=== PATIENT | female | born 1955 | race Hispanic/Latino ===

== ENCOUNTER 2017-09-11 12:18 | Emergency (ER) | payer MEDICARE ==
[2017-09-11] MEDS ORDERED: BOOSTRIX IM ONE (13:07)
[2017-09-11] MEDS ORDERED: NORCO 7.5/325 PO ONE (13:07)
--- NOTE | 2017-09-11 14:23 | Cat Scan Report ---
CT head without contrast: Headache. Axial images are obtained and compared to prior exam in 2012. There is an area of irregular decreased attenuation with encephalomalacia in the left temporal region extending toward ferrell radiata. No mass effect and no hemorrhage. This is unchanged from prior exam. There is a focal area of encephalomalacia in the periphery of the left frontal lobe not identified previously. The scan is otherwise generally unremarkable for stated age. Minimal focal mucoperiosteal thickening is identified in the posterior right sphenoid sinus. The visualized sinuses and bones are not otherwise remarkable. Impression: 1. 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 2. Left frontal encephalomalacia most likely representing a stroke since 2012. CT cervical spine without contrast: Facial pain. Transverse images were performed with coronal and sagittal 2-D reformatted images. Mild focal mucoperiosteal thickening is identified in the posterior right sphenoid sinus and a posterior ethmoid sinus. The remaining paranasal sinuses are clear. The bony structures appear generally unremarkable. There is no evidence of fracture. No swelling identified. Impression: Minimal sinus inflammatory changes of questionable age. No bone nor soft tissue abnormality identified.
[2017-09-11] MEDS ORDERED: MORPHINE ONE (14:55)
[2017-09-11] MEDS ORDERED: XYLOCAINE 1% 20 mL ONE (14:55)
[2017-09-11] MEDS ORDERED: MORPHINE IV ONE (15:03)
[2017-09-11] MEDS ORDERED: XYLOCAINE 1% 20 mL INFILTRATI ONE (15:04)
[2017-09-11] MEDS ORDERED: MORPHINE IM ONE ×2 (15:08→16:03)
[2017-09-11 15:51] VITALS: BP 146/75
--- NOTE | 2017-09-11 16:43 | Emergency Department Report ---
HPI - General Chief Complaint: Fall Time Seen by Provider: 09/11/17 12:42 - HPI HPI: The patient's is 62-year-old female presents for evaluation of trauma to the head. The patient reports headache and forehead pain since falling in her yard due to tripping over a tree stump. She has experienced constant pain since this incident occurred 1 hour prior to arrival. Her pain has been moderate in severity, throbbing in quality, exacerbated with movement of the head. The patient denies fever, syncope, neck pain, neck stiffness, chest pain, dyspnea, abdominal pain, back pain, vision or hearing changes, smell or taste changes, paresthesias, facial drooping, slurred speech, seizure-like activity, urine or bowel incontinence or retention, or other focal neurological deficit. ED Past Medical Hx - Past Medical History Previous Medical History?: Yes Hx Hypertension: Yes Hx CVA: Yes Hx Congestive Heart Failure: No Hx Diabetes: Yes (type II) Hx GERD: Yes Hx Asthma: Yes Hx COPD: Yes Additional medical history: Depression, Anxiety - Surgical History Hx Appendectomy: Yes Additional Surgical History: Hysterectomy, hernia removed, hemorroid removal, partial colectomy - Social History Smoking Status: Current Every Day Smoker Substance Use Type: None - Medications Home Medications: Home Medications Medication Instructions Recorded Confirmed Last Taken Type ALBUTEROL Inhaler [ProAir HFA 2 puff IH QID PRN #1 inhalation 10/06/14 09/11/17 12/16/14 Rx Inhaler] ALPRAZolam [Xanax TAB] 2 mg PO TID PRN 10/06/14 09/11/17 09/10/17 History Albuterol *Only Ed* [Proventil 2.5 mg IH Q4H PRN #30 nebu 10/06/14 09/11/1705/22 Rx 0.5% NEBS] Butalbital/Acetaminophen 1 each PO TID 10/06/14 09/11/17 12/16/14 History [Butalbital-Acetaminophn 50-325] Hydroxyzine HCl [hydrOXYzine] 50 mg PO BID 10/06/14 09/11/17 09/10/17 History Ipratropium/Albuterol Sulfate 4 gm INHALATION PRN PRN 10/06/14 09/11/17 History [Combivent Respimat] Methocarbamol 500 mg PO QDAY 10/06/14 09/11/17 12/16/14 History Nortriptyline [Pamelor] 25 mg PO TID 10/06/14 09/11/17 09/10/17 History Pantoprazole [Protonix TAB] 40 mg PO QDAY 10/06/14 09/11/17 09/10/17 History lamoTRIgine [LaMICtal] 150 mg PO BID 10/06/14 09/11/17 09/10/17 History Acetaminophen/Codeine [Tylenol #3] 1 tab PO Q6H PRN #10 tab 09/11/17 Unknown Rx Cephalexin [Keflex] 500 mg PO TID #10 capsule 09/11/17 Unknown Rx Estrogens, Conjugated [Premarin] 1 tab PO DAILY 09/11/17 09/11/17 Unknown History [place] 10-325 mg TAB 1 tab PO TID 09/11/17 09/11/17 Unknown History Symbicort 160-4.5 Mcg Inhaler 1 puff INHALATION BID 09/11/17 09/11/17 09/10/17 History glyBURIDE/METFORMIN HCL 1 each PO DAILY PRN 09/11/17 09/11/17 09/04/17 History [Glyburide-Metformin 5-500 mg] ED Review of Systems ROS: Stated complaint: FALL/FOREHAED LACERATION Other details as noted in HPI Constitutional: denies: fever ENT: denies: throat or neck pain Respiratory: denies: cough, shortness of breath Cardiovascular: denies: chest pain Endocrine: denies unexplained weight loss or gain Gastrointestinal: denies: abdominal pain, nausea Genitourinary: denies: dysuria Musculoskeletal: denies: leg swelling Skin: denies: rash Neurological: reports: headache Hematological/Lymphatic: denies: easy bleeding or easy bruising Psych: denies sadness or hopelessness Physical Exam - Physical Exam Vital Signs: Vital Signs 09/11/17 09/11/17 09/11/17 12:28 12:40 12:45 Temperature 97.9 F Pulse Rate 66 Respiratory 16 Rate Blood Pressure 137/80 137/80 O2 Sat by Pulse 95 96 93 Oximetry 09/11/17 09/11/17 09/11/17 13:01 13:15 13:30 Temperature Pulse Rate Respiratory Rate Blood Pressure 138/75 138/75 146/75 O2 Sat by Pulse 96 94 94 Oximetry Physical Exam: General: well-nourished, well-developed, no acute distress Head: Normocephalic, 4cm vertical laceration present to the right supraoribital forehead Eyes: normal sclera ENT: Mucous membranes are pink and moist Neck: trachea midline, neck supple, No neck stiffness, no cervical adenopathy Respiratory: Breath sounds equal bilaterally, no wheezing, rales, or rhonchi Cardio: S1 and S2 present, no murmurs, rubs, gallops, capillary refill is brisk Abdomen: Normoactive bowel sounds, soft abdomen, no rigidity, no guarding or rebound tenderness Musc: No pitting edema Skin: No rash Neuro: no facial drooping, normal speech Psych: Normal affect ED Course Vital Signs 09/11/17 09/11/17 09/11/17 12:28 12:40 12:45 Temperature 97.9 F Pulse Rate 66 Respiratory 16 Rate Blood Pressure 137/80 137/80 O2 Sat by Pulse 95 96 93 Oximetry 09/11/17 09/11/17 09/11/17 13:01 13:15 13:30 Temperature Pulse Rate Respiratory Rate Blood Pressure 138/75 138/75 146/75 O2 Sat by Pulse 96 94 94 Oximetry - Laceration /Wound Repair Right Upper Head Wound Location: head Wound Length (cm): 4 Wound's Depth, Shape: superficial, linear Wound Explored: no foreign body removed Irrigated w/ Saline (ccs): 250 Betadine Prep?: Yes Anesthesia: 1% Lidocaine Volume Anesthetic (ccs): 5 Wound Repaired With: sutures Suture Size/Type: 4:0, nylon Number of Sutures: 5 Layer Closure?: No Sterile Dressing Applied?: Yes Progress: Tolerated well ED Medical Decision Making - Medical Decision Making The patient was seen and examined by myself. The patient is placed on a lace roller operator and continuous pulse ox. On initial evaluation, the patient was found to be in no distress. Evaluation orders were placed. The patient was given pain medicine and a tetanus immunization. CT scan of the head and facial bones is negative. Laceration repair was performed successfully. The patient was reevaluated and reported that their symptoms were markedly improved. The patient is stable for discharge with outpatient follow-up. The patient is given follow-up and return instructions. The patient expressed understanding and agreed with the plan. The patient is discharged in stable condition. Critical care attestation.: If time is entered above; I have spent that time in minutes in the direct care of this critically ill patient, excluding procedure time. ED Disposition Clinical Impression: Acute post-traumatic headache, not intractable Laceration of forehead without complication Qualifiers: Encounter type: initial encounter Qualified Code(s): S01.81XA - Laceration without foreign body of other part of head, initial encounter Fall from slip, trip, or stumble Qualifiers: Encounter type: initial encounter Qualified Code(s): W01.0XXA - Fall on same level from slipping, tripping and stumbling without subsequent striking against object, initial encounter Disposition: DC- TO HOME OR SELFCARE Is pt being admited?: No Does the pt Need Aspirin: No Condition: Stable Instructions: Laceration (ED), Suture Care (ED), Acute Headache (ED) Additional Instructions: Follow-up with your primary care physician in 7-10 days for removal of your stitches. Referrals: [facility] [Outside] - 3-5 Days PRIMARY CARE,MD [Primary Care Provider] - 3-5 Days Time of Disposition: 16:36
[2017-09-11] MEDS ORDERED: ANTIBIOTIC OINT TP ONE (17:30)
== END 2017-09-11 17:25 | disposition home or self-care (01) ==
LOC: ED 12:18
DX: S01.81XA Laceration without foreign body of other part of head, initial encounter (principal); G44.319 Acute post-traumatic headache, not intractable; I10 Essential (primary) hypertension; E11.9 Type 2 diabetes mellitus without complications; J44.9 Chronic obstructive pulmonary disease, unspecified; K21.9 Gastro-esophageal reflux disease without esophagitis; F32.9 Major depressive disorder, single episode, unspecified; F41.9 Anxiety disorder, unspecified; F17.200 Nicotine dependence, unspecified, uncomplicated; Z86.73 Personal history of transient ischemic attack (TIA), and cerebral infarction without residual deficits; Z90.710 Acquired absence of both cervix and uterus; Z90.49 Acquired absence of other specified parts of digestive tract; W01.0XXA Fall on same level from slipping, tripping and stumbling without subsequent striking against object, initial encounter; Y93.89 Activity, other specified; Y99.8 Other external cause status; Y92.89 Other specified places as the place of occurrence of the external cause
CPT/HCPCS: 12013; 70450; 70486; 90471; 90715; 96372; 99284; J2270

== ENCOUNTER 2021-03-01 14:06 | Outpatient (CLI) | payer MEDICARE ==
[2021-03-01 15:08] LABS: Basophils # (Auto) 0.1 K/mm3 (0.0-0.1); Basophils % (Auto) 0.7 % (0.0-1.8); Eosinophils # (Auto) 0.2 K/mm3 (0.0-0.4); Eosinophils % (Auto) 2.1 % (0.0-4.3); Hematocrit 46.1 % (30.3-42.9); Hemoglobin 15.5 gm/dl (10.1-14.3); Lymphocytes # (Auto) 2.3 K/mm3 (1.2-5.4); Lymphocytes % (Auto) 23.6 % (13.4-35.0); Mean Corpuscular Volume 92 fl (79-97); Monocytes # (Auto) 0.7 K/mm3 (0.0-0.8); Monocytes % (Auto) 6.8 % (0.0-7.3); Platelet Count 270 K/mm3 (140-440); Red Blood Count 5.02 M/mm3 (3.65-5.03); Red Cell Distribution Width 13.7 % (13.2-15.2)
[2021-03-01 15:14] LABS: Albumin 4.1 g/dL (3.9-5); Calcium 10.3 mg/dL (8.4-10.2); Chol/HDL Ratio 2.51 %
[2021-03-01 15:48] LABS: ABG Base Excess 4.7 mmol/L (-2.0-3.0); ABG HCO3 30.8 mmol/L (20.0-26.0); ABG Methemoglobin 0.5 % (0.0-1.5); ABG Oxygen Saturation 91.9 % (95.0-99.0); ABG PCO2 50.7 mm Hg; ABG PH 7.401 pH Units (7.350-7.450); ABG PO2 59.4 mm Hg (80.0-90.0)
[2021-03-01 15:48] LABS: Mean Corpuscular HGB Conc 34 % (30-34)
--- NOTE | 2021-03-01 17:30 | XRay Report ---
CHEST 2 VIEWS INDICATION / CLINICAL INFORMATION: COPD. COMPARISON: 06/25/2018 FINDINGS: SUPPORT DEVICES: None. HEART / MEDIASTINUM: No significant abnormality. LUNGS / PLEURA: No significant pulmonary or pleural abnormality. No pneumothorax. ADDITIONAL FINDINGS: No significant additional findings. IMPRESSION: 1. No acute findings. Signer Name: Deshaun Pretty DO Signed: 03/01/2021 5:26 PM Workstation Name: [id number]
== END 2021-03-01 14:07 | disposition home or self-care (01) ==
LOC: LAB 14:06
PROVIDERS: ATTEND Internal Medicine
DX: J44.9 Chronic obstructive pulmonary disease, unspecified (principal); J45.909 Unspecified asthma, uncomplicated; I63.9 Cerebral infarction, unspecified; E11.9 Type 2 diabetes mellitus without complications; E07.9 Disorder of thyroid, unspecified; R50.9 Fever, unspecified; F99 Mental disorder, not otherwise specified; F32.0 Major depressive disorder, single episode, mild; R05 Cough
CPT/HCPCS: 36415; 71046; 80053; 80061; 82785; 82803; 84436; 84443; 85025